=== PATIENT | female | born 1935 | race Caucasian/White ===

== ENCOUNTER 2021-03-23 12:01 | Emergency (ER) | payer OTHER, MEDICARE ==
[2021-03-23] MEDS ORDERED: traMADol 50 MG Tab PO ONE (12:02)
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
[2021-03-23] MEDS ORDERED: Iopamidol 755 Mg/ML 100 ML Bottle IV ONE (14:09)
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
== END 2021-03-23 17:50 | disposition home or self-care (01) ==
LOC: FB.ED 12:01
DX: S16.1XXA Strain of muscle, fascia and tendon at neck level, initial encounter (principal); S20.219A Contusion of unspecified front wall of thorax, initial encounter; S50.12XA Contusion of left forearm, initial encounter; S00.81XA Abrasion of other part of head, initial encounter; T65.891A Toxic effect of other specified substances, accidental (unintentional), initial encounter; T25.411A Corrosion of unspecified degree of right ankle, initial encounter; N18.9 Chronic kidney disease, unspecified; Z88.8 Allergy status to other drugs, medicaments and biological substances; Z79.01 Long term (current) use of anticoagulants; Z88.2 Allergy status to sulfonamides; V49.49XA Driver injured in collision with other motor vehicles in traffic accident, initial encounter; Y92.410 Unspecified street and highway as the place of occurrence of the external cause
CPT/HCPCS: 36415; 70450; 71260; 72125; 74177; 80053; 81001; 84484; 85025; 85610; 93005; 99284-25; A9270-GY; Q9967